=== PATIENT | female | born 1990 | race Caucasian/White ===

== ENCOUNTER 2016-02-27 23:38 | Inpatient (IN) | payer MEDICAID ==
[~2016-02-27] VITALS: Ht 162.6 cm; Wt 52.5 kg
[2016-02-27 23:52] VITALS: Ht 162.6 cm; Wt 52.5 kg
[2016-02-28] MEDS ORDERED: ACETAMINOPHEN 325 MG TAB PO STA (00:46)
[2016-02-28 01:26] LABS: BASOPHIL # 0.1 10^3/ul (0.0-0.1); BASOPHILS % 0.4 % (0.0-2.0); EOSINOPHILS # 0.1 10^3/ul (0.0-0.5); EOSINOPHILS % 0.7 % (0.0-7.0); HEMATOCRIT 36.2 % (37.0-47.0); HEMOGLOBIN 12.1 g/dl (12.0-16.0); LYMPHOCYTES # 2.7 10^3/ul (0.8-2.9); LYMPHOCYTES % 15.5 % (15.0-51.0); MEAN CORPUSCULAR HEMOGLOBIN 29.5 pg (29.0-33.0); MEAN CORPUSCULAR HGB CONC 33.4 g/dl (32.0-37.0); MEAN CORPUSCULAR VOLUME 88.3 fl (82.0-101.0); MEAN PLATELET VOLUME 7.7 fl (7.4-10.4); MONOCYTES % 5.6 % (0.0-11.0); NEUTROPHIL # 13.8 10^3/ul (1.6-7.5); NEUTROPHILS % 77.8 % (39.0-77.0); PLATELET COUNT 292 10^3/UL (140-440); RED CELL DISTRIBUTION WIDTH 14.8 % (11.5-14.5); UNCORRECTED WBC 17.7 10^3/ul (4.8-10.8); WHITE BLOOD COUNT 17.7 10^3/ul (4.8-10.8)
[2016-02-28 01:27] LABS: CONDITION 1; LH ANALYZER COMMENTS 1
[2016-02-28 01:34] LABS: ADD UMIC YES; URINE BILIRUBIN (Dip) NEGATIVE (NEGATIVE); URINE BLOOD (Dip) 1+ (NEGATIVE); URINE COLOR LT. YELLOW (YELLOW); URINE GLUCOSE (Dip) NEGATIVE (NEGATIVE); URINE KETONES (Dip) NEGATIVE (NEGATIVE); URINE LEUKOCYTE ESTERASE (Dip) TRACE (NEGATIVE); URINE NITRITE (Dip) NEGATIVE (NEGATIVE); URINE TOTAL PROTEIN (Dip) NEGATIVE (NEGATIVE); URINE UROBILINOGEN (Dip) 0.2 E.U./dL (0.1-1.0)
[2016-02-28 01:50] LABS: URINE RBCS 0-2 /HPF (0)
[2016-02-28 01:51] LABS: BACTERIA,URINE FEW; SQUAMOUS EPITHELIAL CELL,UR RARE
[2016-02-28] MEDS ORDERED: SOD CHLORIDE 0.9% 1,000 ML IV SCH ×2 (02:44→05:12)
[2016-02-28 02:56] VITALS: BP 115/70; PULSE 97; RESP 19; TEMP 98.3
--- NOTE | 2016-02-28 02:57 | RADRPT ---
PROCEDURE: US OB. CLINICAL INDICATION: Vaginal spotting. TECHNIQUE: Multiple sonographic images of the pelvis were obtained. Transabdominal imaging only w as performed. The images were reviewed on a PACS workstation. COMPARISON: None. FINDINGS: Single live intrauterine is identified. Cardiac activity is present with 137 beats per mi nute. There is a breech presentation. Measurements: BPD = 18 weeks 6 days. HC = 18 weeks 2 days. AC = 19 weeks 1 day. FL = 19 weeks 1 day. Estimated gestational age of approximately 18 weeks 6 days. The estimated date of delivery is 07/25/2016. The placenta is posterior. There is no evidence for an abruption or placenta previa. Amniotic fluid MVP = 5.3 cm. Cervix is 2.47 cm in length. IMPRESSION: Single live intrauterine gestation of approximately 18 weeks 6 days. RPTAT: HMVK .Shad Valdivia MD, MD Date Time Electronically viewed and signed by .Shad Valdivia MD, MD on 02/28/2016 02:56 .K/
[2016-02-28] MEDS ORDERED: ONDANSETRON 4 MG INJ IV PRN (03:00)
[2016-02-28] MEDS ORDERED: ACETAMINOPHEN 325 MG TAB PO PRN (03:00)
[2016-02-28] MEDS: AMPICILLIN 2 GM/NS (PMX) 100 ML IVPB SCH ×4 (05:55→23:44)
[2016-02-28] MEDS: DEXTROSE 5%-LR 1,000 ML IV SCH ×2 (05:55→15:22)
--- NOTE | 2016-02-28 06:28 | ERA ---
ER Documentation Chief Complaint Date/Time DATE: 02/28/16 Chief Complaint 18 weeks , Vaginal bleeding, Pelvic pain HPI The patient is a 25-year-old female, A0, who presents to the Emergency Department with complaint of pelvic pain, cramping and vaginal bleeding. The patient's last menstrual period was 10/20/2015. She believes that she is approximately 18 weeks . The patient reports that several hours ago the patient developed sharp and cramping pelvic pains. Since, the pains have been intermittent, but progressively worsening. After a few hours of these symptoms, the patient began to experience vaginal bleeding, using one pad since onset. She denies any passage of clots or tissue. She rates her current pain as 8/10, though she has not yet taken any medication for pain relief. She denies fevers, chills, nausea, vomiting, diarrhea. Denies dysuria , hematuria or flank pain. Denies headache, dizziness, weakness. Denies lower extremity edema, calf swelling or calf tenderness. Denies chest pain, palpitations or shortness of breath. COTTON DISPATCHER is Dr. Shad Fry ROS All systems reviewed and are negative except as per history of present illness. Allergies Allergies: Coded Allergies: No Known Allergy (Unverified , 02/27/16) PMhx/Soc Medical and Surgical Hx: pt denies Medical Hx, pt denies Surgical Hx History of Surgery: No Anesthesia Reaction: No Hx Neurological Disorder: No Hx Respiratory Disorders: No Hx Cardiac Disorders: No Hx Psychiatric Problems: No Hx Miscellaneous Medical Probl: No Hx Alcohol Use: No Hx Substance Use: No Smoking Status: Never smoker Physical Exam Vitals Vital Signs Date Time Temp Pulse Resp B/P Pulse Ox O2 Delivery O2 Flow Rate FiO2 02/28/16 02:56 98.3 97 19 115/70 99 Room Air 02/27/16 23:52 98.3 76 20 128/75 100 Physical Exam GENERAL: Well-developed, well-nourished, female, in no acute distress. HEENT: Head is normocephalic, atraumatic. No scleral pallor or icterus. Pupils equal, round and reactive to light. Conjunctiva pink. Moist mucous membranes. NECK: Supple. RESPIRATORY: Lungs are clear to auscultation bilaterally. Equal breath sounds. Normal expiratory effort. CARDIOVASCULAR: Regular rate and rhythm. S1 and S2 normal. No murmurs. Distal pulses are palpable, 2+ bilaterally. Capillary refill is less than 2 seconds. GASTROINTESTINAL: Abdomen is soft and non-distended. Minimal tenderness to palpation over the suprapubic abdomen. No guarding, no rebound tenderness. Normal bowel sounds. No gross peritonitis. FLANK: No CVA tenderness. EXTREMITIES: No clubbing, cyanosis, or edema. Normal skin perfusion. Moving all extremities. Muscle tone is normal. No focal swelling or erythema. NEUROLOGIC: The patient is alert, awake, and oriented x 3. No focal neurologic deficits. Gait is observed and normal. There is no ataxia. INTEGUMENT: Skin is intact. Warm and dry. No rashes, no petechiae present. PSYCHIATRIC: Cooperative; appropriate. Result Diagram: 02/28/16 0054 Results 24 hrs Laboratory Tests Test 02/28/16 00:54 Basophils # 0.110^3/ul Basophils % 0.4% Beta HCG, Quantitative 25571.0mIU/ml Blood Morphology Comment Eosinophils # 0.110^3/ul Eosinophils % 0.7% Hematocrit 36.2% Hemoglobin 12.1g/dl Lymphocytes # 2.710^3/ul Lymphocytes % 15.5% Mean Corpuscular Hemoglobin 29.5pg Mean Corpuscular Hemoglobin Concent 33.4g/dl Mean Corpuscular Volume 88.3fl Mean Platelet Volume 7.7fl Monocytes # 1.010^3/ul Monocytes % 5.6% Neutrophils # 13.810^3/ul Neutrophils % 77.8% Nucleated Red Blood Cells # 0.010^3/ul Nucleated Red Blood Cells % 0.0/100WBC Platelet Count 30121^3/UL Red Blood Count 4.1010^6/ul Red Cell Distribution Width 14.8% Urine Amorphous Phosphates FEW Urine Bacteria FEW Urine Bilirubin NEGATIVE Urine Clarity CLEAR Urine Color LT. YELLOW Urine Glucose NEGATIVE% Urine Hemoglobin 1+ Urine Ketones NEGATIVE Urine Leukocyte Esterase TRACE Urine Microscopic RBC 0-2/HPF Urine Microscopic WBC 2-5/HPF Urine Nitrite NEGATIVE Urine Specific Closter 1.015 Urine Squamous Epithelial Cells RARE Urine Total Protein NEGATIVE Urine Urobilinogen 0.2 E.U./dL Urine pH 7.5 White Blood Count 17.710^3/ul Current Medications Medications (Trade) Dose Ordered Sig/Georgette Route PRN Reason Start Time Stop Time Status Last Admin Dose Admin Acetaminophen 650 mg 650 mg ONCE STAT PO 02/28/16 00:46 02/28/16 00:48 DC 02/28/16 01:03 Sodium Chloride (NS) 1,000 ml @ 80 mls/hr [id number] IV 02/28/16 02:44 02/28/16 05:20 DC 02/28/16 04:17 Ondansetron HCl (Zofran Inj) 4 mg BRIDGE ORDER PRN IV NAUSEA AND/OR VOMITING 02/28/16 03:00 02/28/16 05:25 DC Acetaminophen (Tylenol Tab) 650 mg ER BRIDGE PRN PO MILD PAIN/FEVER 02/28/16 03:00 02/28/16 05:25 DC Procedures/MDM I kept the patient and family informed of laboratory and diagnostic imaging results throughout the Emergency Department course. DIAGNOSTIC TESTS AND INTERPRETATION: PROCEDURE: US OB. CLINICAL INDICATION: Vaginal spotting. TECHNIQUE: Multiple sonographic images of the pelvis were obtained. Transabdominal imaging only was performed. The images were reviewed on a PACS workstation. COMPARISON: None. FINDINGS: Single live intrauterine is identified. Cardiac activity is present with 137 beats per minute. There is a breech presentation. Measurements: BPD = 18 weeks 6 days. HC = 18 weeks 2 days. AC = 19 weeks 1 day. FL = 19 weeks 1 day. Estimated gestational age of approximately 18 weeks 6 days. The estimated date of delivery is 07/25/2016. The placenta is posterior. There is no evidence for an abruption or placenta previa. Amniotic fluid MVP = 5.3 cm. Cervix is 2.47 cm in length. IMPRESSION:Single live intrauterine gestation of approximately 18 weeks 6 days. .Shad Valdivia MD, MD Date Time Electronically viewed and signed by .Shad Valdivia MD, on 02/28/2016 02:56 ED COURSE: The patient was stable throughout the ED course. IV access established by nursing staff. Tylenol administered for pain control. Laboratory work and ultrasound imaging performed. 1:45 am: Informed by Building Maintenance Superintendent that patient's cervix was not easily measurable on initial imaging. Therefore, US OB Cervical Length ordered, with measurement of approximately 2.5 cm. Laboratory analysis reveals leukocytosis of 17,700. Given patient history, presentation, and laboratory results (mainly leukocytosis), COTTON DISPATCHER specialist on -call, Dr. Llamas, was consulted at 2:10. CONSULTATION: 2:10 AM: Dr. Llamas - Discussed patient case. Recommends calling patient's OB/ WASH CREW PERSON first, Dr. Fry, to see if he would like to admit the patient, as it is his patient. If he does not answer, she recommends calling her back. 2:12 AM: Dr. Fry called by flash welder. Awaiting call back. 2:41 AM: Dr. Llamas - Informed that had not yet heard back from Dr. Fry. Dr. Llamas recommends admission for monitoring, further evaluation, and likely antibiotic therapy given leukocytosis with unclear source. She agrees to accept patient for admission. MEDICAL DECISION MAKING: This is a 25-year-old 18-week female presenting to the Emergency Department complaining of pelvic pain and vaginal bleeding. She had mild suprapubic tenderness to palpation on physical examination, but otherwise, no other abnormalities were noted. Vital signs were normal. Differential diagnosis includes, but is not limited to, cervicitis, fibroids, molar , heterotopic , septic , missed , incomplete , inevitable , threatened , complete , coagulopathy, fibroids, adenomyosis, endometriosis, neoplasia , vaginitis, PID, vaginal trauma, dysfunctional uterine bleeding. Laboratory analysis revealed leukocytosis of 17,700. Hemoglobin and hematocrit are stable, no evidence of severe anemia requiring transfusion. Beta hCG is 38,939. Rh (+), no indication for RhoGAM. Ultrasound performed revealed a single live intrauterine of approximately 18 weeks 6 days with cardiac activity of 137 beats per minute. Placenta is posterior, with no current evidence of abruption of previa. Cervix is 2.47 cm in length. After rest and administration of Tylenol, the patient reports no new complaints and mildly decreased pain. Upon review and interpretation of the patient's presentation and overall ER course, I believe the patient's symptoms are most consistent with threatened and leukocytosis. The cause of the patient's leukocytosis remains unclear at this time. No evidence of acute/surgical abdomen. Urinalysis with trace leukocyte esterase, and only 2-5 WBCs, unlikely to be urinary tract infection. The patient's case was discussed with Dr. Llamas, who will admit patient for further evaluation and management. Departure Diagnosis: Primary Impression: Threatened Additional Impressions: Pelvic pain complicating , antepartum Leukocytosis Qualified Code: D72.829 - Leukocytosis, unspecified type Condition: CHANEL Suh PA-C Feb 28, 2016 06:18
[2016-02-28] MEDS ORDERED: GENTAMICIN 120 MG/NS (PMX) 100 ML IVPB ONE (08:00)
[2016-02-28] MEDS ORDERED: GENTAMICIN 270 MG in SOD CHLORIDE 0.9% 100 ML IVPB SCH (09:00)
[2016-02-28 11:54] LABS: EOSINOPHILS # 0.1 10^3/ul (0.0-0.5); EOSINOPHILS % 0.8 % (0.0-7.0); HEMATOCRIT 32.3 % (37.0-47.0); HEMOGLOBIN 10.7 g/dl (12.0-16.0); LYMPHOCYTES % 12.9 % (15.0-51.0); MEAN CORPUSCULAR HEMOGLOBIN 29.2 pg (29.0-33.0); MEAN CORPUSCULAR HGB CONC 33.1 g/dl (32.0-37.0); MEAN CORPUSCULAR VOLUME 88.2 fl (82.0-101.0); MEAN PLATELET VOLUME 7.8 fl (7.4-10.4); MONOCYTE # 0.7 10^3/ul (0.3-0.9); MONOCYTES % 4.2 % (0.0-11.0); NEUTROPHIL # 12.8 10^3/ul (1.6-7.5); NEUTROPHILS % 82.1 % (39.0-77.0); PLATELET COUNT 242 10^3/UL (140-440); RED BLOOD COUNT 3.66 10^6/ul (4.20-5.40); RED CELL DISTRIBUTION WIDTH 14.5 % (11.5-14.5); UNCORRECTED WBC 15.6 10^3/ul (4.8-10.8); WHITE BLOOD COUNT 15.6 10^3/ul (4.8-10.8)
[2016-02-28 11:55] LABS: CONDITION 1; LH ANALYZER COMMENTS 1
[2016-02-28] MEDS: PROGESTERONE 100 MG CAP VAG SCH (15:19)
[2016-02-28] MEDS: GENTAMICIN 80 MG/NS (PMX) 50 ML IVPB SCH (15:28)
[2016-02-28] MEDS: ACETAMINOPHEN 325 MG TAB PO PRN (22:51)
[2016-02-29] MEDS ORDERED: LACTATED RINGER'S 1,000 ML IV ONE
[2016-02-29] MEDS ORDERED: ZOLPIDEM 5 MG TAB PO PRN
[2016-02-29] MEDS: GENTAMICIN 80 MG/NS (PMX) 50 ML IVPB SCH ×4 (01:10→23:44)
[2016-02-29] MEDS: DEXTROSE 5%-LR 1,000 ML IV SCH ×4 (01:10→21:28)
[2016-02-29] MEDS: PROGESTERONE 100 MG CAP VAG SCH ×3 (03:34→20:58)
[2016-02-29] MEDS: AMPICILLIN 2 GM/NS (PMX) 100 ML IVPB SCH ×3 (06:27→17:41)
[2016-02-29 07:36] LABS: BASOPHILS % 0.3 % (0.0-2.0); EOSINOPHILS # 0.1 10^3/ul (0.0-0.5); EOSINOPHILS % 0.5 % (0.0-7.0); HEMOGLOBIN 10.6 g/dl (12.0-16.0); LYMPHOCYTES # 1.9 10^3/ul (0.8-2.9); LYMPHOCYTES % 11.3 % (15.0-51.0); MEAN CORPUSCULAR HEMOGLOBIN 29.9 pg (29.0-33.0); MEAN CORPUSCULAR HGB CONC 34.2 g/dl (32.0-37.0); MEAN CORPUSCULAR VOLUME 87.5 fl (82.0-101.0); MEAN PLATELET VOLUME 7.6 fl (7.4-10.4); MONOCYTE # 0.8 10^3/ul (0.3-0.9); MONOCYTES % 4.6 % (0.0-11.0); NEUTROPHIL # 14.3 10^3/ul (1.6-7.5); NEUTROPHILS % 83.3 % (39.0-77.0); PLATELET COUNT 218 10^3/UL (140-440); RED BLOOD COUNT 3.54 10^6/ul (4.20-5.40); RED CELL DISTRIBUTION WIDTH 14.5 % (11.5-14.5); UNCORRECTED WBC 17.2 10^3/ul (4.8-10.8); WHITE BLOOD COUNT 17.2 10^3/ul (4.8-10.8)
[2016-02-29 07:39] LABS: CREATININE 0.42 mg/dl (0.44-1.00)
[2016-02-29 07:41] LABS: CONDITION 1
[2016-02-29 07:50] LABS: BLOOD UREA NITROGEN < 2 mg/dl (7-20)
--- NOTE | 2016-02-29 14:04 | PERINOTE ---
Date/Time of Note Date/Time of Note DATE: 02/29/16 TIME: 13:56 Assessment/Recommendations Other Assessments Threatened Ab Mildly short cervix--treated with vaginal progesterone and antibiotics Elevated WBC, afebrile Recommendations: Would continue current management. Could consider D/C home if the patient's WBC is reduced and she remains afebrile. If the patient is discontinued, would insure that she has outpatient vaginal progesterone available. OB Subjective Free Text/Dictaton Patient is admitted for vaginal bleeding and abdominal pain, thought to be due to threatened Ab. Cervical length is borderline short on transvaginal ultrasound. Patient also noted to have elevated WBC count, no obvious source of infection. HD# 2 IUP @ 18W6D Complaints/Overnight events Patient reports that pain is improved Current Medications Current Medications Dextrose/Lactated Ringer's 1,000 ml @ 125 mls/hr Q8H IV Last administered on 02/29/16at 10:52; Admin Dose 125 MLS/HR; Start 02/28/16 at 05:30 Ampicillin 100 ml @ 100 mls/hr Q6 IVPB Last administered on 02/29/16at 11:35; Admin Dose 100 MLS/HR; Start 02/28/16 at 06:00 Gentamicin Sulfate (Gentamicin) 50 ml @ 100 mls/hr Q8H IVPB Last administered on 02/29/16at 07:49; Admin Dose 100 MLS/HR; Start 02/28/16 at 16:00 Progesterone (Prometrium) 100 mg BID VAG Last administered on 02/29/16at 10:52 ; Admin Dose 100 MG; Start 02/28/16 at 15:00 Acetaminophen (Tylenol Tab) 650 mg Q4H PRN PO PAIN AND OR ELEVATED TEMP Last administered on 02/28/16at 22:51; Admin Dose 650 MG; Start 02/28/16 at 22:45 Zolpidem Tartrate (Ambien) 10 mg HS PRN PO INSOMNIA; Start 02/29/16 at 00:00 Past Medical History Medical History: no pertinent history Surgical History: other (Surgery on Nose) DENTURE MODEL MAKER History: no pertinent DENTURE MODEL MAKER history Para: 0 : 1 LMP (Females 10-50): Social History Smoker: non-smoker Alcohol: none Drugs: none OB Admission Exam Physical Exam Vitals: Vital Signs Date Time Temp Pulse Resp B/P Pulse Ox O2 Delivery O2 Flow Rate FiO2 02/28/16 02:56 98.3 97 19 115/70 99 Room Air 02/29/16 98.5 82 16 99/55 max BP since admission = 99.1 Abdomen: Abnormal (2+ tender suprapubic) Last 72 hours Lab Results CBC & BMP 02/28/16 00:54 02/28/16 09:23 02/29/16 07:07 Copies To: CC: KIA GRIMALDO MD,EILEEN Valdez MD Feb 29, 2016 14:04
--- NOTE | 2016-02-29 15:27 | QN ---
Documentation Comment HD #[address]. 25 y.o. G1 with an IUP at 18 weeks admitted with cramping, slight bleeding, noted to have a short cervix on US of 2.4 cm and a WBC of 17.7. A U/A was unremarkable and a cx was sent. The pt has been at bedrest. Ampicillin and Gentamicin were started. The patient has remained afebrile. Her cramping has subsided. She has had only a slight amount of pinkind D/C.Her WBC has gone from 17.7 to 15.6 to 17.2. Her urine cx has a preliminary reading of lactobacilli. Spoke to the pt and her ( on speaker, by phone) with Dr Panda about the 18 week gestational age, the length of time from viability, the uncertainty about the meaning and source of an elevated WBC, the possibility that it could be related to an infection in the uterus and if that was the case then the IV antibiotics would be unlikely to treat and prevent a loss, the possibility that the elevated WBC could be due to another source altogether, the short cervix seeming to indicate that possibly the source is the uterus. She had been started on progesterone suppositories by Dr Hughes and that was discussed as a method to help support the cervix but that if there was an infection in the uterus it wouldn't help. Plan, in conjunction with Dr Panda: Keep pt on the IV antibiotics until the WBC decreases and we have the final urine cx results. Would then send pt home on bedrest and progesterone suppositories. I believe [facility] does not pay for micronized progesterone so she would need a Rx for Micronized progesterone 100 mg BID to get her through to when she could get to a compounding pharmacy and then a Rx for Micronized progesterone vaginal suppositories 100 BID to be filled at a compounding pharmacy as it can be filled for about $30/month. Follow-up with Dr Hughes. JENNY SMITH MD Feb 29, 2016 15:26
[2016-02-29] MEDS: ACETAMINOPHEN 325 MG TAB PO PRN (15:33)
[2016-03-01] MEDS: AMPICILLIN 2 GM/NS (PMX) 100 ML IVPB SCH ×4 (00:23→17:35)
[2016-03-01] MEDS: DEXTROSE 5%-LR 1,000 ML IV SCH ×3 (05:30→20:01)
[2016-03-01 07:00] LABS: BASOPHIL # 0.1 10^3/ul (0.0-0.1); BASOPHILS % 0.3 % (0.0-2.0); EOSINOPHILS # 0.1 10^3/ul (0.0-0.5); EOSINOPHILS % 0.7 % (0.0-7.0); HEMATOCRIT 32.7 % (37.0-47.0); HEMOGLOBIN 11.3 g/dl (12.0-16.0); LYMPHOCYTES # 2.1 10^3/ul (0.8-2.9); LYMPHOCYTES % 11.9 % (15.0-51.0); MEAN CORPUSCULAR HEMOGLOBIN 30.7 pg (29.0-33.0); MEAN CORPUSCULAR HGB CONC 34.5 g/dl (32.0-37.0); MEAN CORPUSCULAR VOLUME 88.8 fl (82.0-101.0); MEAN PLATELET VOLUME 7.5 fl (7.4-10.4); MONOCYTE # 0.9 10^3/ul (0.3-0.9); MONOCYTES % 5.1 % (0.0-11.0); NEUTROPHIL # 14.3 10^3/ul (1.6-7.5); PLATELET COUNT 241 10^3/UL (140-440); RED BLOOD COUNT 3.68 10^6/ul (4.20-5.40); RED CELL DISTRIBUTION WIDTH 14.5 % (11.5-14.5); UNCORRECTED WBC 17.4 10^3/ul (4.8-10.8); WHITE BLOOD COUNT 17.4 10^3/ul (4.8-10.8)
[2016-03-01 07:18] LABS: CONDITION 1; LH ANALYZER COMMENTS 1
[2016-03-01] MEDS: GENTAMICIN 80 MG/NS (PMX) 50 ML IVPB SCH ×3 (08:07→23:53)
[2016-03-01] MEDS: PROGESTERONE 100 MG CAP VAG SCH ×2 (09:09→20:54)
[2016-03-01] MEDS: ACETAMINOPHEN 325 MG TAB PO PRN (20:29)
[2016-03-02] MEDS: AMPICILLIN 2 GM/NS (PMX) 100 ML IVPB SCH ×5 (00:22→23:34)
[2016-03-02] MEDS: DEXTROSE 5%-LR 1,000 ML IV SCH ×2 (05:56→13:30)
[2016-03-02 06:15] LABS: BASOPHILS % 0.2 % (0.0-2.0); EOSINOPHILS # 0.2 10^3/ul (0.0-0.5); EOSINOPHILS % 0.9 % (0.0-7.0); HEMATOCRIT 31.9 % (37.0-47.0); HEMOGLOBIN 11.1 g/dl (12.0-16.0); LYMPHOCYTES # 2.3 10^3/ul (0.8-2.9); LYMPHOCYTES % 13.1 % (15.0-51.0); MEAN CORPUSCULAR HEMOGLOBIN 30.3 pg (29.0-33.0); MEAN CORPUSCULAR HGB CONC 34.6 g/dl (32.0-37.0); MEAN CORPUSCULAR VOLUME 87.7 fl (82.0-101.0); MEAN PLATELET VOLUME 7.4 fl (7.4-10.4); MONOCYTE # 0.8 10^3/ul (0.3-0.9); MONOCYTES % 4.4 % (0.0-11.0); NEUTROPHIL # 14.4 10^3/ul (1.6-7.5); NEUTROPHILS % 81.4 % (39.0-77.0); PLATELET COUNT 241 10^3/UL (140-440); RED BLOOD COUNT 3.64 10^6/ul (4.20-5.40); RED CELL DISTRIBUTION WIDTH 14.2 % (11.5-14.5); UNCORRECTED WBC 17.8 10^3/ul (4.8-10.8); WHITE BLOOD COUNT 17.8 10^3/ul (4.8-10.8)
[2016-03-02 06:26] LABS: CONDITION 1
[2016-03-02] MEDS: PROGESTERONE 100 MG CAP VAG SCH ×2 (09:01→21:05)
[2016-03-02] MEDS: GENTAMICIN 80 MG/NS (PMX) 50 ML IVPB SCH ×2 (09:01→16:23)
[2016-03-02] MEDS: ACETAMINOPHEN 325 MG TAB PO PRN (22:41)
[2016-03-03] MEDS: GENTAMICIN 80 MG/NS (PMX) 50 ML IVPB SCH ×3 (00:45→15:53)
[2016-03-03] MEDS: AMPICILLIN 2 GM/NS (PMX) 100 ML IVPB SCH ×3 (06:00→17:55)
[2016-03-03 08:52] LABS: BASOPHIL # 0.1 10^3/ul (0.0-0.1); BASOPHILS % 0.3 % (0.0-2.0); EOSINOPHILS # 0.2 10^3/ul (0.0-0.5); EOSINOPHILS % 1.1 % (0.0-7.0); HEMATOCRIT 32.9 % (37.0-47.0); HEMOGLOBIN 11.1 g/dl (12.0-16.0); LYMPHOCYTES % 9.5 % (15.0-51.0); MEAN CORPUSCULAR HEMOGLOBIN 29.4 pg (29.0-33.0); MEAN CORPUSCULAR HGB CONC 33.6 g/dl (32.0-37.0); MEAN CORPUSCULAR VOLUME 87.6 fl (82.0-101.0); MEAN PLATELET VOLUME 6.9 fl (7.4-10.4); MONOCYTE # 0.9 10^3/ul (0.3-0.9); MONOCYTES % 4.1 % (0.0-11.0); NEUTROPHIL # 17.9 10^3/ul (1.6-7.5); PLATELET COUNT 232 10^3/UL (140-440); RED BLOOD COUNT 3.76 10^6/ul (4.20-5.40); RED CELL DISTRIBUTION WIDTH 14.4 % (11.5-14.5); UNCORRECTED WBC 21.1 10^3/ul (4.8-10.8); WHITE BLOOD COUNT 21.1 10^3/ul (4.8-10.8)
[2016-03-03] MEDS: PROGESTERONE 100 MG CAP VAG SCH ×2 (08:54→21:02)
[2016-03-03 08:59] LABS: CONDITION 1; LH ANALYZER COMMENTS 1
[2016-03-03] MEDS: SOD CHLORIDE 0.9% 1,000 ML IV SCH (11:28)
[2016-03-03] MEDS: ACETAMINOPHEN 325 MG TAB PO PRN (17:05)
[2016-03-04] MEDS: AMPICILLIN 2 GM/NS (PMX) 100 ML IVPB SCH ×3 (00:24→11:33)
[2016-03-04 07:13] LABS: BASOPHIL # 0.1 10^3/ul (0.0-0.1); BASOPHILS % 0.5 % (0.0-2.0); EOSINOPHILS # 0.2 10^3/ul (0.0-0.5); EOSINOPHILS % 0.9 % (0.0-7.0); HEMATOCRIT 30.9 % (37.0-47.0); HEMOGLOBIN 10.8 g/dl (12.0-16.0); LYMPHOCYTES # 2.2 10^3/ul (0.8-2.9); LYMPHOCYTES % 11.2 % (15.0-51.0); MEAN CORPUSCULAR HEMOGLOBIN 30.1 pg (29.0-33.0); MEAN CORPUSCULAR HGB CONC 34.9 g/dl (32.0-37.0); MEAN CORPUSCULAR VOLUME 86.2 fl (82.0-101.0); MEAN PLATELET VOLUME 7.3 fl (7.4-10.4); MONOCYTE # 0.9 10^3/ul (0.3-0.9); MONOCYTES % 4.7 % (0.0-11.0); NEUTROPHIL # 16.3 10^3/ul (1.6-7.5); NEUTROPHILS % 82.7 % (39.0-77.0); PLATELET COUNT 228 10^3/UL (140-440); RED BLOOD COUNT 3.58 10^6/ul (4.20-5.40); UNCORRECTED WBC 19.6 10^3/ul (4.8-10.8); WHITE BLOOD COUNT 19.6 10^3/ul (4.8-10.8)
[2016-03-04 07:24] LABS: CONDITION 1
[2016-03-04] MEDS: GENTAMICIN 80 MG/NS (PMX) 50 ML IVPB SCH ×3 (08:38→15:51)
[2016-03-04] MEDS: PROGESTERONE 100 MG CAP VAG SCH ×2 (08:38→21:01)
[2016-03-04] MEDS: SOD CHLORIDE 0.9% 1,000 ML IV SCH (11:33)
--- NOTE | 2016-03-04 17:54 | CONS ---
DATE OF ADMISSION: 02/28/2016 DATE OF CONSULTATION: 03/04/2016 TYPE OF CONSULTATION: Infectious disease. REASON FOR CONSULTATION: Antibiotic management. HISTORY OF PRESENT ILLNESS: Holly Reyez is a pleasant 25-year-old [place] female who is 18 weeks who comes in with vaginal bleeding and pelvic pain and is being seen for leuko cytosis. The patient comes in with pelvic pain, cramping, and vaginal bleeding. Last menstrual per iod was 10/20/2015 and she is 18 weeks . They thought initially that she might have threate agatha , but that passed. She had some vaginal bleeding. She does not have any other signific ant past medical history. On admission, her white count was 17.7, H and H of 12.1 and 36.2, platelet count of 292,000. On the 4th, her white count was 19.6. BUN and creatinine was less than 2 and 0.42. Urine showed trace le ukocyte esterase, 2 to 5 white cells per high-powered field. MICROBIOLOGY: Urine culture grew out lactobacillus species. Urine culture final drawn on 7 showed no growth. The obstetrical ultrasound showed single live intrauterine gestation of approxi mately 18 weeks and 6 days. The patient was started on ampicillin and gentamicin. PAST MEDICAL HISTORY: Operations as outlined. FAMILY HISTORY: Noncontributory. SOCIAL HISTORY: She does not smoke, drink, or abuse drugs. ALLERGIES: NONE TO PENICILLIN, SULFA, OR FOODS. MEDICATIONS: Per chart. REVIEW OF SYSTEMS: As per HPI. PHYSICAL EXAMINATION: GENERAL: The patient is a well-developed, well-nourished female who is alert, responsive, in no acu te distress. VITAL SIGNS: Stable. She is afebrile. SKIN: Without generalized rash. HEENT: Within normal limits. NECK: Supple. LYMPH NODES: None palpable. CHEST: Clear to P and A. HEART: Without murmur or gallop. ABDOMEN: Soft, nondistended. She has minimal tenderness in the suprapubic area with no rebound. EXTREMITIES: Without cyanosis, clubbing, or edema. No CVA tenderness. RECTAL AND GENITAL: Deferred. NEUROLOGIC: No focal neurological abnormalities. IMPRESSION AND PLAN: The patient has abdominal tenderness, probably related to the itself . The lactobacillus is of no consequence. The only issue here is that her white count is still kiel vated at 19.6. I am going to stop her gentamicin. We will continue the ampicillin for the time maikel ng. We may change it to oral and will observe her white count. She appears to be quite healthy. I will dictate my findings to Dr. Shad Grimaldo. Dictated By: YUNI DUTTON MD, JD/NTS Conf#: [id number] DID#: [id number] CC: SHAD GRIMALDO MD;*EndCC*
[2016-03-04] MEDS: AMPICILLIN 500 MG CAP PO SCH (17:57)
[2016-03-04] MEDS: ACETAMINOPHEN 325 MG TAB PO PRN (18:54)
[2016-03-05] MEDS: AMPICILLIN 500 MG CAP PO SCH ×4 (00:09→17:27)
[2016-03-05] MEDS: CLINDAMYCIN 900 MG/D5W (PMX) 50 ML IV SCH (01:17)
[2016-03-05 08:07] LABS: BASOPHILS % 0.2 % (0.0-2.0); EOSINOPHILS # 0.1 10^3/ul (0.0-0.5); EOSINOPHILS % 0.7 % (0.0-7.0); HEMATOCRIT 32.8 % (37.0-47.0); HEMOGLOBIN 11.1 g/dl (12.0-16.0); LYMPHOCYTES # 1.8 10^3/ul (0.8-2.9); MEAN CORPUSCULAR HEMOGLOBIN 29.7 pg (29.0-33.0); MEAN CORPUSCULAR HGB CONC 33.9 g/dl (32.0-37.0); MEAN CORPUSCULAR VOLUME 87.6 fl (82.0-101.0); MEAN PLATELET VOLUME 7.2 fl (7.4-10.4); MONOCYTE # 0.8 10^3/ul (0.3-0.9); MONOCYTES % 3.9 % (0.0-11.0); NEUTROPHIL # 16.9 10^3/ul (1.6-7.5); NEUTROPHILS % 86.2 % (39.0-77.0); PLATELET COUNT 249 10^3/UL (140-440); RED BLOOD COUNT 3.75 10^6/ul (4.20-5.40); RED CELL DISTRIBUTION WIDTH 13.9 % (11.5-14.5); UNCORRECTED WBC 19.7 10^3/ul (4.8-10.8); WHITE BLOOD COUNT 19.7 10^3/ul (4.8-10.8)
[2016-03-05 08:13] LABS: CONDITION 1
[2016-03-05] MEDS: PROGESTERONE 100 MG CAP VAG SCH (08:52)
--- NOTE | 2016-03-05 14:43 | PN ---
DATE: 03/05/2016 INFECTIOUS DISEASE PROGRESS NOTE SUBJECTIVE: No acute events overnight. The patient is alert, feels good. Denies nausea, vomiting or diarrhea. No dysuria. No cough. No fevers per report. WBC 19.7 with H and H of 11.1 and 32.8, platelets 249, neutrophils 86.2. No bands. MICROBIOLOGY: Urine culture on admission grew lactobacillus species. Repeat urine culture is negative. ANTIMICROBIALS: The patient is on ampicillin. PHYSICAL EXAMINATION: GENERAL: This is a well-nourished, well-developed young woman, who is alert, in no distress. HEENT: Head atraumatic, normocephalic. Sclerae are anicteric. Buccal mucosa pink. NECK: Supple, trachea midline. CHEST: Chest rise is symmetrical. Breath sounds clear. HEART: S1, S2. ABDOMEN: Soft, bowel tones present. EXTREMITIES: Without cyanosis or edema. ASSESSMENT: 1. Leukocytosis, with shift to the left. No evidence for active infectious process. Urine culture negative. 2. Eighteen-week . PLAN: The patient remains stable. No fevers. She still has persistent leukocytosis and she was started on ampicillin, status post gentamicin. At this point etiology of her leukocytosis could be reactive. I would recommend to do a baseline chest x-ray if possible, given her , and consider a hematology evaluation. The above was discussed with the patient, her and the nursing staff. Dictated By: VIJAYA GUARDADO BACKER UP for YUNI NOE/PIO Conf#: [id number] DID#: [id number] ROMIE
[2016-03-05] MEDS ORDERED: LACTATED RINGER'S 1,000 ML IV PRN (17:00)
[2016-03-05] MEDS: ACETAMINOPHEN 325 MG TAB PO PRN (17:50)
[2016-03-05] MEDS ORDERED: LACTATED RINGER'S 1,000 ML IV SCH (18:18)
[2016-03-05] MEDS ORDERED: CARBOPROST 250 MCG INJ IM PRN ×2 (18:30→21:00)
[2016-03-05] MEDS ORDERED: BUTORPHANOL 2 MG INJ IV PRN ×2 (18:30)
[2016-03-05] MEDS ORDERED: LIDOCAINE 1% (MPF) 30 ML INJ INJ PRN (18:30)
[2016-03-05] MEDS ORDERED: MISOPROSTOL 200 MCG TAB PR PRN ×2 (18:30→21:00)
[2016-03-05] MEDS ORDERED: OXYTOCIN 30 UNITS/LR 500 ML IV PRN ×2 (18:30→21:00)
[2016-03-05] MEDS ORDERED: IBUPROFEN 600 MG TAB PO PRN (18:30)
[2016-03-05] MEDS ORDERED: METHYLERGONOVINE 0.2 MG INJ IM PRN ×2 (18:30→21:00)
[2016-03-05] MEDS ORDERED: OXYTOCIN 30 UNITS/LR 500 ML IV SCH (18:30)
[2016-03-05 19:25] LABS: HEMATOCRIT 35.7 % (37.0-47.0); HEMOGLOBIN 12.1 g/dl (12.0-16.0); MEAN CORPUSCULAR HEMOGLOBIN 29.8 pg (29.0-33.0); MEAN CORPUSCULAR VOLUME 87.7 fl (82.0-101.0); MEAN PLATELET VOLUME 6.9 fl (7.4-10.4); PLATELET COUNT 313 10^3/UL (140-440); RED BLOOD COUNT 4.08 10^6/ul (4.20-5.40); RED CELL DISTRIBUTION WIDTH 13.7 % (11.5-14.5); UNCORRECTED WBC 22.4 10^3/ul (4.8-10.8); WHITE BLOOD COUNT 22.4 10^3/ul (4.8-10.8)
[2016-03-05 19:29] LABS: CONDITION 1; LH ANALYZER COMMENTS 1; SUSPECT 1
[2016-03-05] MEDS ORDERED: AMPICILLIN 2 GM/NS (PMX) 100 ML IVPB SCH (19:30)
[2016-03-05 19:41] LABS: INR 0.98; PARTIAL THROMBOPLASTIN TIME 22.9 Sec (25.0-35.0)
[2016-03-05] MEDS ORDERED: FENTAnyl 2MCG/ML-ROPIV 0.2% 100 ML ONE (19:56)
[2016-03-05] MEDS ORDERED: NALOXONE (0.4 MG/ML) INJ IV PRN (20:00)
[2016-03-05] MEDS ORDERED: EPHEDrine SULFATE 50 MG/5 ML SYG IV PRN (20:00)
[2016-03-05] MEDS ORDERED: MISOPROSTOL 200 MCG TAB PO ONE (20:00)
[2016-03-05] MEDS ORDERED: FENTAnyl 2MCG/ML-ROPIV 0.2% 100 ML BAG EPI SCH (20:00)
[2016-03-05] MEDS ORDERED: ONDANSETRON 4 MG INJ IV PRN ×2 (20:00→21:00)
[2016-03-05] MEDS ORDERED: GENTAMICIN 80 MG/NS (PMX) 50 ML IVPB SCH ×2 (20:00→21:00)
--- NOTE | 2016-03-05 20:42 | LDN ---
Date/Time of Note Date/Time of Note DATE: 03/05/16 TIME: 20:39 Delivery Summary inevitable triple antibiotics Placenta Delivered: Spontaneously Meconium: none Perineum intact?: No Sponge & Needle done & correct: Yes All needle counts correct: Yes Any foreign bodies felt in the: No Problems: Infant Delivery Information Sex Sex: male Apgars 1 Minute: 0 5 Minute: 0 Suctioning Nose & mouth suctioned at keisha: No Umbilical Cord Cord presentations: no nuchal cord Cord Blood was obtained: No KIA GRIMALDO MD Mar 05, 2016 20:42
[2016-03-05] MEDS ORDERED: SENNA/DOCUSATE NA (8.6MG/50MG) TAB PO PRN (21:00)
[2016-03-05] MEDS ORDERED: WITCH HAZEL/GLYCERIN PAD PR PRN (21:00)
[2016-03-05] MEDS ORDERED: OXYCODONE/ASPIRIN (4.88/325) TAB PO PRN (21:00)
[2016-03-05] MEDS ORDERED: GENTAMICIN 270 MG in SOD CHLORIDE 0.9% 100 ML IVPB SCH (21:00)
[2016-03-05] MEDS ORDERED: LANOLIN 7 GM TUBE TOP PRN (21:00)
[2016-03-05] MEDS ORDERED: BENZOCAINE 20% 56 ML SPRAY TOP PRN (21:00)
[2016-03-05] MEDS ORDERED: ZOLPIDEM 5 MG TAB PO PRN (21:00)
[2016-03-05] MEDS ORDERED: METHYLERGONOVINE 0.2 MG TAB PO PRN (21:00)
[2016-03-05] MEDS: LACTATED RINGER'S 1,000 ML IV* SCH (21:04)
[2016-03-05] MEDS: AMPICILLIN 2 GM/NS (PMX) 100 ML IV SCH (21:06)
[2016-03-05 21:53] LABS: EOSINOPHILS # 0.4 10^3/ul (0.0-0.5); LYMPHOCYTES # 3.8 10^3/ul (0.8-2.9); MONOCYTE # 0.9 10^3/ul (0.3-0.9); NEUTROPHIL # 14.8 10^3/ul (1.6-7.5)
[2016-03-05] MEDS ORDERED: CLINDAMYCIN 900 MG/D5W (PMX) 50 ML IVPB SCH (22:00)
[2016-03-05] MEDS ORDERED: GENTAMICIN 80 MG INJ IVPB SCH (22:00)
[2016-03-05] MEDS ORDERED: GENTAMICIN 120 MG/NS (PMX) 100 ML IVPB ONE (23:00)
[2016-03-05] MEDS: SENNA/DOCUSATE NA (8.6MG/50MG) TAB PO SCH (23:23)
[2016-03-05] MEDS: MAGNESIUM HYDROXIDE 30ML CUP PO SCH (23:23)
[2016-03-06] MEDS: IBUPROFEN 600 MG TAB PO SCH ×4 (01:17→17:27)
[2016-03-06] MEDS: LACTATED RINGER'S 1,000 ML IV* SCH ×2 (04:42→06:48)
[2016-03-06] MEDS: AMPICILLIN 2 GM/NS (PMX) 100 ML IV SCH ×2 (06:04→11:38)
[2016-03-06 06:36] LABS: HEMATOCRIT 30.9 % (37.0-47.0); HEMOGLOBIN 10.8 g/dl (12.0-16.0); MEAN CORPUSCULAR HEMOGLOBIN 30.2 pg (29.0-33.0); MEAN CORPUSCULAR HGB CONC 34.8 g/dl (32.0-37.0); MEAN CORPUSCULAR VOLUME 86.7 fl (82.0-101.0); MEAN PLATELET VOLUME 7.1 fl (7.4-10.4); PLATELET COUNT 254 10^3/UL (140-440); RED BLOOD COUNT 3.56 10^6/ul (4.20-5.40); RED CELL DISTRIBUTION WIDTH 13.9 % (11.5-14.5); UNCORRECTED WBC 27.3 10^3/ul (4.8-10.8); WHITE BLOOD COUNT 27.3 10^3/ul (4.8-10.8)
[2016-03-06 06:46] LABS: CONDITION 1; LH ANALYZER COMMENTS 1; SUSPECT 1
[2016-03-06] MEDS: CLINDAMYCIN 900 MG/D5W (PMX) 50 ML IV SCH ×2 (06:50→10:00)
[2016-03-06] MEDS ORDERED: GENTAMICIN 80 MG/NS (PMX) 50 ML IVPB SCH (07:00)
[2016-03-06] MEDS: OXYCODONE/ASPIRIN (4.88/325) TAB PO PRN (08:42)
[2016-03-06 09:31] LABS: LYMPHOCYTES # 0.5 10^3/ul (0.8-2.9); MONOCYTE # 1.1 10^3/ul (0.3-0.9); NEUTROPHIL # 24.3 10^3/ul (1.6-7.5)
[2016-03-06] MEDS: MAGNESIUM HYDROXIDE 30ML CUP PO SCH ×2 (10:03→21:00)
[2016-03-06] MEDS: SENNA/DOCUSATE NA (8.6MG/50MG) TAB PO SCH ×2 (10:03→21:00)
--- NOTE | 2016-03-06 10:56 | CONS ---
DATE OF ADMISSION: 02/28/2016 DATE OF CONSULTATION: 03/06/2016 TYPE OF CONSULTATION: Hematology. REQUESTING PHYSICIAN: Dr. Jaffe REASON FOR CONSULTATION: Leukocytosis. Dear Dr. Jaffe: Thank you very much for asking me to see this very interesting and pleasant patie nt in hematologic consultation. As you know, Ms. Reyez is a 25-year-old female who was admitted to [facility] on 02/28/2016. The patient at that time was in her 18th week of he r first . The patient was admitted on 02/28/2016 with a "threatened ." On admission at that time, the patient had a white count of 17,700, absolute neutrophil count was 13 ,800 and absolute lymphocyte count was 2700. Hemoglobin was 12.1, hematocrit 36.2 and platelet count 292,000. The patient had not been febrile. She denied any fevers, chills, or diaphoresis. She did not have dysuria. The patient states she did have a urinary tract infection in October of 2015. At that t rené, she was treated with antibiotics with resolution of the symptoms. A urine culture and sensitivity have been done here on 03/01/2016 and thus far shows no growth. During this patient's hospitalization, she has continued to have leukocytosis which has in fact incr eased. On February 28 white count was 17,200, on March 01 17,400, March 02 17,800, on March 03 i t was 21,000 on March 04 [id number], on March 05, 22,400 and today 27,300 with 89 segs, 4 bands, 2 lymp hs and 1 metamyelocyte. Hemoglobin today is 10.8, hematocrit 30.9 and platelet count 254,000. Other laboratory includes a protime of 13 seconds, INR of 0.98, PTT of 22.9 seconds. The patient states that she has had some difficulty with nausea and vomiting during . She in fact states that she has lost 8 kilograms during the rather than gaining weight. It should be noted the patient did have a CBC as an outpatient on 12/31/2015. At that time, the pat ient was in her 10th week of . White count at that time was 2200, 71 segs, 0 bands, 21 lym phs and 6 monocytes. Hemoglobin was 12.9, hematocrit 37.4, platelet count 26,000. A urine MANAGER INVESTMENT BANKING done at that time was negative. PAST MEDICAL HISTORY: The patient's past history is otherwise unremarkable. As noted, she has had urinary tract infection, but otherwise has had no medical problems. PAST SURGICAL HISTORY: The patient has had no surgeries. The patient was taking only vitamins prior to admission. ALLERGIES: SHE HAS NO ALLERGIES. SOCIAL HISTORY: The patient has had no known exposures to industrial toxins or ionizing radiation. She does not smoke. FAMILY HISTORY: Unremarkable. As far as she is aware, there has been no known hematologic abnormal ities. PHYSICAL EXAMINATION: GENERAL: Today reveals a well-developed, well-nourished female who is in no acute distress. SKIN: No ecchymosis, no petechiae or rashes. HEENT: Normocephalic. No evidence of trauma. Pupils equal, round, react to light and accommodatio n. Sclerae nonicteric. Oral mucosa is moist without lesions. Tongue is well papillated. No gingi yusra hyperplasia, no hypertrophy of Waldeyer ring, no mucosal telangiectasias. NECK: Supple, no jugular venous distention or thyroid enlargement. No carotid bruits. CHEST: Clear to auscultation and percussion. No rhonchi, wheezes, rales or rubs. NODES: No palpable lymphadenopathy in lymph node bearing area. HEART: Regular sinus rhythm. No S3, S4 or murmurs. No rubs. ABDOMEN: Soft, no masses, no ascites. EXTREMITIES: Good range of motion, no clubbing, edema or cyanosis. No palpable cords or Homans sig n. NEUROLOGIC: Normal. The peripheral smear has been reviewed this morning. The only abnormality is leukocytosis. This bas ically is a granulocytosis with normal appearing granulocytes. There is no left shift. There are n o toxic granulations. There is no vacuolization of the cytoplasm. There is occasional Dohle bodies seen. There are no immature neutrophils and no nucleated red blood cells are noted. RBC and plate let morphology is normal. DISCUSSION: I feel that this patient's leukocytosis is somewhat multifactorial. As noted, the patie nt did have a mild leukocytosis of 12,200 when seen at her 10th week of . This is consiste nt with a leukocytosis which is associated with and begins during the second month of preg kori and peaks in the third trimester. White count at that time maybe expected to be as high as 15 ,000. One may also see occasional metamyelocytes or myelocytes. The patient has had a recent increase in leukocytosis which I feel is likely "reactive" due to the stress of the impending , which actually did take place on 03/05/2016. At this time, I do not feel there is any evidence of any type of underlying hematologic abnormality. There does not appear to be any evidence of a myeloproliferative neoplasm (MPN) or chronic myelog enous leukemia. I will repeat CBC in the a.m. Also will obtain a CMP. Other studies will include a FLORENCIA-2 mutation and a BCR/ABL gene rearrangement studies. Once again, thank you very much for the opportunity of participating in the medical care of this louis y interesting and pleasant patient. I will be happy to follow this patient with you and assist in h er hematologic evaluation and followup as necessary. Dictated By: RANDALL RATLIFF MD SR/PIO Conf#: [id number] DID#: [id number]
--- NOTE | 2016-03-06 12:32 | CONS ---
Date/Time of Note Date/Time of Note DATE: 03/06/16 TIME: 12:27 Consult Date/Type/Reason Admit Date/Time Feb 28, 2016 at 03:56 Initial Consult Date Type of Consultation: ID Ordering Provider: KIA GRIMALDO MD Subjective S/p inevitable last night, no fevers, alert, looks comfortable, at bedside Objective Intake and Output 03/05/16 03/05/16 03/06/16 15:00 23:00 07:00 Intake Total 600 ml 925 ml Output Total 450 ml 550 ml Balance 150 ml 375 ml Results/Medications Result Diagram: 03/06/16 0607 Results 24 hrs Laboratory Tests Test 03/05/16 19:05 03/06/16 06:07 Activated Partial Thromboplast Time 22.9 L Band Neutrophils % 11.0 H 4.0 Blood Morphology Comment Eosinophils # 0.4 Eosinophils % 2.0 Hematocrit 35.7 L 30.9 L Hemoglobin 12.1 10.8 L INR International Normalized Ratio 0.98 Lymphocytes # 3.8 H 0.5 L Lymphocytes % 17.0 2.0 L Mean Corpuscular Hemoglobin 29.8 30.2 Mean Corpuscular Hemoglobin Concent 34.0 34.8 Mean Corpuscular Volume 87.7 86.7 Mean Platelet Volume 6.9 L 7.1 L Monocytes # 0.9 1.1 H Monocytes % 4.0 4.0 Neutrophils # 14.8 H 24.3 H Neutrophils % 66.0 89.0 H Platelet Count 313 # 254 Prothrombin Time 13.0 Prothrombin Time Ratio 1.0 Rapid Plasma Reagin NONREACTIVE Red Blood Count 4.08 L 3.56 L Red Cell Distribution Width 13.7 13.9 White Blood Count 22.4 H 27.3 #H Basophils # Basophils % Differential Comment MANUAL DIFF Metamyelocytes # 0.3 Metamyelocytes % 1.0 H Nucleated Red Blood Cells # Nucleated Red Blood Cells % Medications Current Medications Lactated Ringer's 1,000 ml @ 125 mls/hr Q8H IV* Last administered on 03/06/16 06:48; Admin Dose 125 MLS/HR; Start 03/05/16 at 20:42 Ampicillin 100 ml @ 100 mls/hr Q6 IV Last administered on 03/06/16 11:38; Admin Dose 100 MLS/HR; Start 03/06/16 at 00:00 Clindamycin HCl/ Dextrose (Cleocin 900 Mg/ D5W (Pmx)) 50 ml @ 50 mls/hr Q8 IV Last administered on 03/06/16 10:00; Admin Dose 50 MLS/HR; Start 03/05/16 at 22: 00 Methylergonovine Maleate (Methergine) 0.2 mg Q6H PRN PO VAGINAL BLEEDING; Start 03/05/16 at 21:00 Ibuprofen (Motrin) 600 mg Q6 PO Last administered on 03/06/16 11:38; Admin Dose 600 MG; Start 03/06/16 at 00:00 Oxycodone/Aspirin (Percodan) 1 tab Q3H PRN PO PAIN LEVEL 1-5 Last administered on 03/06/16 08:42; Admin Dose 1 TAB; Start 03/05/16 at 21:00 Oxycodone/Aspirin (Percodan) 2 tab Q3H PRN PO PAIN LEVEL 6-10; Start 03/05/16 at 21:00 Ondansetron HCl (Zofran Inj) 4 mg Q6H PRN IV NAUSEA AND/OR VOMITING; Start 03/05 at 21:00 Zolpidem Tartrate (Ambien) 5 mg QHS PRN PO INSOMNIA; Start 03/05/16 at 21:00 Senna/Docusate Sodium (Senokot-S) 1 tab BID PO Last administered on 03/06/16 10 :03; Admin Dose 1 TAB; Start 03/05/16 at 21:00 Senna/Docusate Sodium (Senokot-S) 1 tab BID PRN PO CONSTIPATION; Start 03/05/16 at 21:00 Magnesium Hydroxide 30 ml 30 ml Q12 PO Last administered on 03/06/16 10:03; Admin Dose 30 ML; Start 03/05/16 at 21:00 Oxytocin/Lactated Ringer's 500 ml @ 0 mls/hr ONCE PRN IV For Hemorrhage Management; Start 03/05/16 at 21:00 Methylergonovine Maleate (Methergine) 0.2 mg ONCE PRN IM VAGINAL BLEEDING; Start 03/05/16 at 21:00 Carboprost Tromethamine (Hemabate) 250 mcg ONCE PRN IM VAGINAL BLEEDING; Start 03/05/16 at 21:00 Misoprostol 1000 mcg 1,000 mcg ONCE PRN [place] VAGINAL BLEEDING; Start 03/05/16 at 21 :00 Gentamicin Sulfate (Gentamicin) 50 ml @ 100 mls/hr Q8H IVPB Last administered on 03/06/16t 06:57; Admin Dose 100 MLS/HR; Start 03/06/16 at 07:00 Assessment/Plan Chief Complaint/Hosp Course PHYSICAL EXAMINATION: GENERAL: This is a well-nourished, well-developed young woman, who is alert, in no distress. HEENT: Head atraumatic, normocephalic. Sclerae are anicteric. Buccal mucosa pink. NECK: Supple, trachea midline. CHEST: Chest rise is symmetrical. Breath sounds clear. HEART: S1, S2. ABDOMEN: Soft, bowel tones present. EXTREMITIES: Without cyanosis or edema. ASSESSMENT: 1. Leukocytosis, likely reactive 2 to #2==> hematology rec-s noted, urine cx neg, no fevers. 2. S/p spontaneous . PLAN: Clinically unchanged, no fevers, on multiple abx, will change to Zosyn until tomorrow. DW staff DW pt/ at bedside Problems: VIJAYA GUARDADO NP Mar 06, 2016 12:32
[2016-03-06] MEDS: PIPER-TAZO 3.375 GM IV (PMX) 100 ML IVPB SCH ×2 (13:15→21:47)
--- NOTE | 2016-03-06 21:27 | QN ---
Documentation Comment attending note PPD # 1 patient seen and evaluated no complaints vs stable afebrile ab soft nt no distention, no cva b/l extremity no edema no calf tenderness wBC 27,000 a/ s/p vaginal delivery at 18 wks ga, leukocytosis stable afebrile p/ iron supplement continue antibiotics KIA GRIMALDO MD Mar 06, 2016 21:27
[2016-03-07] MEDS: OXYCODONE/ASPIRIN (4.88/325) TAB PO PRN (00:06)
[2016-03-07] MEDS: PIPER-TAZO 3.375 GM IV (PMX) 100 ML IVPB SCH ×2 (05:53→13:57)
[2016-03-07] MEDS: IBUPROFEN 600 MG TAB PO SCH ×5 (06:00→23:43)
[2016-03-07 07:04] LABS: BASOPHILS % 0.4 % (0.0-2.0); EOSINOPHILS # 0.2 10^3/ul (0.0-0.5); EOSINOPHILS % 1.7 % (0.0-7.0); HEMATOCRIT 28.5 % (37.0-47.0); HEMOGLOBIN 9.7 g/dl (12.0-16.0); LYMPHOCYTES # 2.9 10^3/ul (0.8-2.9); LYMPHOCYTES % 22.9 % (15.0-51.0); MEAN CORPUSCULAR HEMOGLOBIN 29.9 pg (29.0-33.0); MEAN CORPUSCULAR HGB CONC 34.1 g/dl (32.0-37.0); MEAN CORPUSCULAR VOLUME 87.7 fl (82.0-101.0); MEAN PLATELET VOLUME 7.2 fl (7.4-10.4); MONOCYTE # 0.8 10^3/ul (0.3-0.9); MONOCYTES % 6.4 % (0.0-11.0); NEUTROPHIL # 8.7 10^3/ul (1.6-7.5); NEUTROPHILS % 68.6 % (39.0-77.0); PLATELET COUNT 223 10^3/UL (140-440); RED BLOOD COUNT 3.25 10^6/ul (4.20-5.40); UNCORRECTED WBC 12.6 10^3/ul (4.8-10.8); WHITE BLOOD COUNT 12.6 10^3/ul (4.8-10.8)
[2016-03-07 07:06] LABS: CONDITION 1
[2016-03-07 07:09] LABS: ALBUMIN 3.1 g/dl (3.3-4.9)
[2016-03-07 07:10] LABS: POTASSIUM 4.5 mmol/L (3.5-5.1)
[2016-03-07 07:12] LABS: ALBUMIN/GLOBULIN RATIO 1.03; BILIRUBIN,INDIRECT 0.1 mg/dl (0-1.1); BILIRUBIN,TOTAL 0.1 mg/dl (0.2-1.3); CREATININE 0.47 mg/dl (0.44-1.00); TOTAL PROTEIN 6.1 g/dl (6.1-8.1)
[2016-03-07 07:13] LABS: CALCIUM 8.6 mg/dl (8.4-10.2)
--- NOTE | 2016-03-07 07:21 | QN ---
Documentation Comment attending note PPD # 2 patient seen and evaluated no complaints vs stable afebrile ab soft nt no distention, no cva b/l extremity no edema no calf tenderness cbc pending a/ s/p vaginal delivery at 18 wks ga, PPD 2 leukocytosis stable afebrile p/ f/u cbc KIA GRIMALDO MD Mar 07, 2016 07:21
[2016-03-07] MEDS: FERROUS SULFATE (EC) 325 MG TAB PO SCH ×2 (11:03→21:09)
[2016-03-07] MEDS: MAGNESIUM HYDROXIDE 30ML CUP PO SCH ×2 (11:04→21:08)
[2016-03-07] MEDS: SENNA/DOCUSATE NA (8.6MG/50MG) TAB PO SCH ×2 (11:04→21:08)
--- NOTE | 2016-03-07 12:24 | CONS ---
DATE OF ADMISSION: 02/28/2016 DATE OF CONSULTATION: 03/07/2016 HEMATOLOGY PROGRESS NOTE SUBJECTIVE: Patient is feeling well. She has not complained of any discomfort. Her appetite has im proved. There is no longer any nausea or vomiting. OBJECTIVE: The patient remains afebrile. The remainder of the physical examination is unchanged. DATA: White count this morning is 12,600 with an absolute neutrophil count of 8700, absolute lymphoc yte count of 2900, hemoglobin 9.7, hematocrit 28.5 and platelet count 223,000. A comprehensive meta bolic panel reveals normal liver function studies. Total bilirubin was 0.1, AST 26, ALT 51, alkalin e phosphatase 77 and creatinine is 0.47. As expected, the patient's leukocytosis is resolving. The JAK2 and Bcr-Abl studies will take approx imately 7 to 10 days for results to become available. No new recommendations at this time. We will repeat CBC in the morning. Dictated By: RANDALL RATLIFF MD SR/PIO Conf#: [id number] DID#: [id number]
--- NOTE | 2016-03-07 14:37 | CONS ---
Date/Time of Note Date/Time of Note DATE: 03/07/16 TIME: 14:36 Consult Date/Type/Reason Admit Date/Time Feb 28, 2016 at 03:56 Type of Consultation: ID Ordering Provider: KIA GRIMALDO MD Subjective alert, feels better, no fevers, nad Objective Intake and Output 03/06/16 03/06/16 03/07/16 15:00 23:00 07:00 Intake Total 525 ml 100 ml 125 ml Output Total 400 ml Balance 125 ml 100 ml 125 ml Results/Medications Result Diagram: 03/07/16 0616 03/07/16 0616 Results 24 hrs Laboratory Tests Test 03/07/16 06:16 Alanine Aminotransferase (ALT/SGPT) 51 Albumin 3.1 L Albumin/Globulin Ratio 1.03 Alkaline Phosphatase 77 Anion Gap 16 Aspartate Amino Transf (AST/SGOT) 26 Basophils # 0.0 Basophils % 0.4 Blood Morphology Comment Blood Urea Nitrogen 5 L Calcium Level 8.6 Carbon Dioxide Level 25 Chloride Level 106 Creatinine 0.47 Direct Bilirubin 0.00 Eosinophils # 0.2 Eosinophils % 1.7 Globulin 3.00 Glucose Level 84 Hematocrit 28.5 L Hemoglobin 9.7 L Indirect Bilirubin 0.1 Lymphocytes # 2.9 Lymphocytes % 22.9 Mean Corpuscular Hemoglobin 29.9 Mean Corpuscular Hemoglobin Concent 34.1 Mean Corpuscular Volume 87.7 Mean Platelet Volume 7.2 L Monocytes # 0.8 Monocytes % 6.4 Neutrophils # 8.7 H Neutrophils % 68.6 Nucleated Red Blood Cells # 0.0 Nucleated Red Blood Cells % 0.0 Platelet Count 223 Potassium Level 4.5 Red Blood Count 3.25 L Red Cell Distribution Width 14.0 Sodium Level 142 Total Bilirubin 0.1 L Total Protein 6.1 White Blood Count 12.6 #H Medications Current Medications Methylergonovine Maleate (Methergine) 0.2 mg Q6H PRN PO VAGINAL BLEEDING; Start 03/05/16 at 21:00 Ibuprofen (Motrin) 600 mg Q6 PO Last administered on 03/07/16 11:08; Admin Dose 600 MG; Start 03/06/16 at 00:00 Oxycodone/Aspirin (Percodan) 1 tab Q3H PRN PO PAIN LEVEL 1-5 Last administered on 03/07/16 00:06; Admin Dose 1 TAB; Start 03/05/16 at 21:00 Oxycodone/Aspirin (Percodan) 2 tab Q3H PRN PO PAIN LEVEL 6-10 Last administered on 03/06/16 17:28; Admin Dose 2 TAB; Start 03/05/16 at 21:00 Ondansetron HCl (Zofran Inj) 4 mg Q6H PRN IV NAUSEA AND/OR VOMITING; Start 03/05 at 21:00 Zolpidem Tartrate (Ambien) 5 mg QHS PRN PO INSOMNIA; Start 03/05/16 at 21:00 Senna/Docusate Sodium (Senokot-S) 1 tab BID PO Last administered on 03/07/16 11 :04; Admin Dose 1 TAB; Start 03/05/16 at 21:00 Senna/Docusate Sodium (Senokot-S) 1 tab BID PRN PO CONSTIPATION; Start 03/05/16 at 21:00 Magnesium Hydroxide 30 ml 30 ml Q12 PO Last administered on 03/07/16 11:04; Admin Dose 30 ML; Start 03/05/16 at 21:00 Oxytocin/Lactated Ringer's 500 ml @ 0 mls/hr ONCE PRN IV For Hemorrhage Management; Start 03/05/16 at 21:00 Methylergonovine Maleate (Methergine) 0.2 mg ONCE PRN IM VAGINAL BLEEDING; Start 03/05/16 at 21:00 Carboprost Tromethamine (Hemabate) 250 mcg ONCE PRN IM VAGINAL BLEEDING; Start 03/05/16 at 21:00 Misoprostol (Cytotec) 1,000 mcg ONCE PRN [place] VAGINAL BLEEDING; Start 03/05/16 at 21:00 Ferrous Sulfate (Ferrous Sulfate (Ec)) 325 mg BID PO Last administered on 11:03; Admin Dose 325 MG; Start 03/07/16 at 09:00 IV Flush (NS 10 ml) 10 ml Q8 IV Last administered on 03/07/16 13:58; Admin Dose 10 ML; Start 03/07/16 at 14:00 Assessment/Plan Chief Complaint/Hosp Course PHYSICAL EXAMINATION: GENERAL: This is a well-nourished, well-developed young woman, who is alert, in no distress. HEENT: Head atraumatic, normocephalic. Sclerae are anicteric. Buccal mucosa pink. NECK: Supple, trachea midline. CHEST: Chest rise is symmetrical. Breath sounds clear. HEART: S1, S2. ABDOMEN: Soft, bowel tones present. EXTREMITIES: Without cyanosis or edema. ASSESSMENT: 1. Leukocytosis, likely reactive 2 to #2==> hematology rec-s noted, urine cx neg, no fevers. 2. S/p spontaneous . PLAN: Clinically stable, wbc tracing down, dc abx and observe. DW staff DW pt at bedside Problems: VIJAYA GUARDADO NP Mar 07, 2016 14:37
[2016-03-08] MEDS: IBUPROFEN 600 MG TAB PO SCH ×2 (05:56→12:16)
[2016-03-08 07:00] LABS: BASOPHILS % 0.4 % (0.0-2.0); EOSINOPHILS # 0.4 10^3/ul (0.0-0.5); EOSINOPHILS % 2.9 % (0.0-7.0); HEMATOCRIT 31.8 % (37.0-47.0); HEMOGLOBIN 10.8 g/dl (12.0-16.0); LYMPHOCYTES # 2.6 10^3/ul (0.8-2.9); LYMPHOCYTES % 18.7 % (15.0-51.0); MEAN CORPUSCULAR HEMOGLOBIN 29.9 pg (29.0-33.0); MEAN CORPUSCULAR HGB CONC 33.9 g/dl (32.0-37.0); MEAN CORPUSCULAR VOLUME 88.4 fl (82.0-101.0); MEAN PLATELET VOLUME 7.1 fl (7.4-10.4); MONOCYTE # 0.8 10^3/ul (0.3-0.9); MONOCYTES % 5.4 % (0.0-11.0); NEUTROPHIL # 10.2 10^3/ul (1.6-7.5); NEUTROPHILS % 72.6 % (39.0-77.0); PLATELET COUNT 279 10^3/UL (140-440); RED CELL DISTRIBUTION WIDTH 14.2 % (11.5-14.5); UNCORRECTED WBC 14.1 10^3/ul (4.8-10.8); WHITE BLOOD COUNT 14.1 10^3/ul (4.8-10.8)
[2016-03-08 07:07] LABS: CONDITION 1
[2016-03-08] MEDS: MAGNESIUM HYDROXIDE 30ML CUP PO SCH (09:01)
[2016-03-08] MEDS: FERROUS SULFATE (EC) 325 MG TAB PO SCH (09:01)
[2016-03-08] MEDS: SENNA/DOCUSATE NA (8.6MG/50MG) TAB PO SCH (09:01)
== END 2016-03-08 12:50 | disposition home or self-care (01) | DRG 775 ==
LOC: FTE 23:38 → OBG 02-28 03:56 → L-D 03-05 18:44 → OBG 03-05 23:14
PROVIDERS: ADMIT Obstetrics & Gynecology; ATTEND Obstetrics & Gynecology
PROC: 10E0XZZ Delivery of Products of Conception, External Approach (ICD-10-PCS; principal; 2016-03-05)
DX: O60.12X0 Preterm labor second trimester with preterm delivery second trimester, not applicable or unspecified (principal); O26.872 Cervical shortening, second trimester; O26.892 Other specified pregnancy related conditions, second trimester; Z37.1 Single stillbirth; Z3A.18 18 weeks gestation of pregnancy; D72.829 Elevated white blood cell count, unspecified
CPT/HCPCS: 36415; 62319; 76805; 76816; 76817; 80053; 80170; 81001; 81003; 81270; 82565; 84520; 84702; 85025; 85610; 85730; 86592; 86900; 86901; 87086; 88307; J0290; J1580; J2210; J2543; J2590; J3010; J7030; J7120; J7121